=== PATIENT | male | born 1990 | race Caucasian/White ===

== ENCOUNTER 2022-12-12 14:33 | Emergency (ER) | payer OTHER, SELFPAY ==
[2022-12-12 14:38] VITALS: BP 149/91; PULSE 85; RESP 20; TEMP 37.1; O2SAT 100
--- NOTE | 2022-12-12 14:46 | ED.URI ---
HPI - URI/Sore Throat General Chief Complaint: Shortness of Breath/Dyspnea Stated Complaint: Sinus Pain Time Seen by Provider: 12/12/22 14:46 Source: patient and RN notes reviewed History of Present Illness HPI Narrative: Patient is a 31-year-old male who presents to urgent care with complaints of sinus pressure in the right side of his face and chest congestion. Patient states the pressure started a couple days ago with congestion being approximately 2 weeks. Patient states he has been using Flonase and Mucinex. Denies any fever, nausea or vomiting. No other acute complaints. No acute distress noted. Patient aware of the plan of care. Some parts of this dictation were generated by voice recognition software and may contain typographical and/or grammatical inaccuracies. Related Data Home Medications Medication Instructions Recorded Confirmed hydroxyzine HCl 25 mg tablet mg 12/12/22 Allergies Allergy/AdvReac Type Severity Reaction Status Date / Time No Known Allergies Allergy Unverified 01/03/14 13:08 Review of Systems Review of Systems: CONSTITUTIONAL: Denies fever, chills, or sweats. EYES: Denies visual changes, redness, or discharge. ENT: Denies rhinorrhea, congestion, sore throat, or otalgia. Reports of right-sided facial/sinus pressure CARDIOVASCULAR: Denies chest pain, palpitations, or edema. RESPIRATORY: Reports of chest congestion GASTROINTESTINAL: Denies abdominal pain, nausea, vomiting, or diarrhea. GENITOURINARY: Denies dysuria or hematuria. SKIN: Denies rash or itching. MUSCULOSKELETAL: Denies back pain, joint pain, or myalgia. NEUROLOGIC: Denies headache, numbness, or weakness. All other systems reviewed are negative, except as documented in HPI. PMFSH Comments At the time of my signature, I reviewed and agree with the nursing past medical, surgical, social, and family history. There is no relevant family history pertinent to the patient complaint. Exam Narrative: GENERAL: This is a well-nourished, well-developed patient, in no apparent distress. HEAD: normocephalic, atraumatic. Reported frontal sinus pressure EYES: PERRL. Sclera clear/white. Vision is grossly intact. EARS: External ears normal, auditory canals clear and without drainage, TMs normal without perforation. Hearing grossly intact. NOSE: External nose normal with no obvious nasal discharge, nares without redness, clear rhinorrhea. THROAT: Mucous membranes moist, posterior pharynx clear. Moderate postnasal drainage NECK: Neck supple, non-tender without lymphadenopathy, masses or thyromegaly. RESPIRATORY: Clear to auscultation. Breath sounds equal bilaterally. No wheezes, rales, or rhonchi. SKIN: warm, intact with no suspicious lesions or rash, good texture and turgor. NEURO: awake, alert, and oriented to person, place and time. There were no obvious focal neurologic abnormalities. EXTREMITIES: No clubbing, cyanosis, or edema. Course Course Level of Care: Express Care Visit Vital Signs Vital signs: Vital Signs Temperature 98.8 F 12/12/22 14:38 Pulse Rate 85 12/12/22 14:38 Respiratory Rate 20 12/12/22 14:38 Blood Pressure 149/91 H 12/12/22 14:38 Pulse Oximetry 100 12/12/22 14:38 Oxygen Delivery Room Air 12/12/22 14:38 Temperature 98.8 F 12/12/22 14:38 Pulse Rate 85 12/12/22 14:38 Respiratory Rate 20 12/12/22 14:38 Blood Pressure 149/91 H 12/12/22 14:38 Pulse Oximetry 100 12/12/22 14:38 Oxygen Delivery Room Air 12/12/22 14:38 Reviewed- Patient is informed that they may have pre-hypertension or hypertension based on a blood pressure reading in the department. I recommend the patient call the primary care provider listed on their discharge instructions or a physician of their choice this week to arrange follow-up for further evaluation of possible pre-hypertension or hypertension. MDM - URI/Sore Throat MDM Narrative Medical decision making narrative: Advised patient complete the steroid
== END 2022-12-12 15:13 | disposition home or self-care (01) ==
PROVIDERS: Emergency Provider Nurse Practitioner Family
DX: J32.9 Chronic sinusitis, unspecified (principal)
CPT/HCPCS: 99203; G0463